=== PATIENT | male | born 1955 | race Caucasian/White ===

== ENCOUNTER 2019-08-07 16:05 | Emergency (ER) | payer MEDICARE, SELFPAY ==
[2019-08-07 16:13] VITALS: BP 151/94; PULSE 82; RESP 18; O2SAT 97; BMI 34.0
[2019-08-07 16:33] VITALS: BP 128/73; PULSE 77; RESP 18; TEMP 36.6; O2SAT 98; BMI 33.6
--- NOTE | 2019-08-07 16:33 | HMH.EDUTC ---
[facility] Disposition Clinical Impression: Bee sting reaction Qualifiers: Encounter type: initial encounter Injury intent: undetermined intent Qualified Code(s): T63.444A - Toxic effect of venom of bees, undetermined, initial encounter Disposition: Home, Self-Care Condition on Discharge: Good Instructions: Insect Bites and Stings, DI for Insect Bites and Stings, How to Care for an Insect Bite or Sting, Insect Bites and Stings (Alternative Therapy) Additional Instructions: Take medication as prescribed Watch for reactions in the future when you get stung or bitten by bee Return if needed Follow up with family doctor if no improvement or any worsening of symptoms Straight to ER if any life threatening symptoms Allergy testing recommended to see which bee stings you may react too Elevate hand and ice to area may help with pain and itching Prescriptions: cephALEXin [Keflex 500mg Cap] 500 mg PO Q6H 7 Days #28 cap Transmission Status: Pending to [facility] methylPREDNISolone [Medrol 4mg tab] 4 mg PO DIRECTED #21 tab Transmission Status: Pending to [id number] Referrals: Provider,Referral, [Primary Care Provider] - As needed Time of Disposition: 17:00 Medical Decision Making - Giancarlo Inquiry Pt receiving controlled substance: No Giancarlo was queried for this patient: No Vital Signs: 08/07/19 16:13 Pulse Rate [Radial] 82 Respiratory Rate 18 Blood Pressure [Right Arm] 151/94 H Blood Pressure Mean [Right Arm] 113 Blood Pressure Source [Right Arm] Automatic Cuff Blood Pressure Position [Right Arm] Sitting 02 Sat by Pulse Oximetry 97 Oxygen Delivery Method Room Air [facility] HPI - General Stated complaint: Stung by wasp right hand red and swollen Time Seen by Provider: 08/07/19 16:33 Mode of Arrival: Ambulatory Limitations: No Limitations Description of Symptoms (Recalled from Triage Doc. by RN): stung by a wasp 48 hours ago - History of Present Illness Provider Complaint: Patient states a couple days ago he was stung by a wasp and thinks he is having a reaction States that the swelling in his right hand has continued to get worse State that he noticed it was more itchy and swollen earlier today and thought he may need to come in States that he has an epipen at home where he had a reaction similar to this a few years ago to a hornet - Related Data Home Medications Medication Instructions Recorded Confirmed Amlodipine Besylate [Amlodipine 10 mg PO DAILY 08/07/19 08/07/19 10mg Tab] Olmesartan Medoxomil [Benicar] 40 mg PO DAILY 08/07/19 08/07/19 Previous Rx's Medication Instructions Recorded cephALEXin [Keflex 500mg Cap] 500 mg PO Q6H 7 Days #28 cap 08/07/19 methylPREDNISolone [Medrol 4mg 4 mg PO DIRECTED #21 tab 08/07/19 tab] Allergies Allergy/AdvReac Type Severity Reaction Status Date / Time No Known Allergies Allergy Verified 08/07/19 16:14 [facility] History - Hepatitis A Screen Attestation statement:: This patient has been screened for Hepatitis A risk factors. ROS Obtained: Yes All systems reviewed & no additional complaints, Yes Systems reviewed as appropriate & no additional complaints - Allergic/Immunologic Comments: bee sting in right hand with swelling into right forearm Physical Exam - General General appearance: alert, in no apparent distress - ENT ENT exam: Present: normal exam, normal oropharynx, mucous membranes moist, TM's normal bilaterally, normal external ear exam - Respiratory Respiratory exam: Present: normal lung sounds bilaterally. Absent: respiratory distress - Cardiovascular Cardiovascular exam: Present: regular rate - Abdominal Exam Abdominal exam: Present: soft, normal bowel sounds. Absent: distention, tenderness, guarding - Expanded Upper Extremity Exam Right Forearm/Wrist exam: Present: swelling Hand exam: Present: tenderness, swelling, other (swelling, redness and itching in right hand extendin
[2019-08-07 16:55] VITALS: BP 128/73; PULSE 77; RESP 18; TEMP 36.6; O2SAT 98
== END 2019-08-07 17:05 | disposition home or self-care (01) ==
PROVIDERS: Emergency Provider Nurse Practitioner
DX: T63.441A Toxic effect of venom of bees, accidental (unintentional), initial encounter (principal)
CPT/HCPCS: G0463; 96372; 99201

== ENCOUNTER 2019-12-19 09:14 | Emergency (ER) | payer MEDICARE, SELFPAY ==
[2019-12-19 09:15] VITALS: BP 141/87; PULSE 76; RESP 19; TEMP 36.6; O2SAT 99; BMI 33.3
--- NOTE | 2019-12-19 09:26 | XR_ITS ---
PROCEDURE: XR RIBS LT MIN 3V W [id number] CLINICAL INDICATION: fall Posttraumatic pain COMPARISON: No exams were available for comparison FINDINGS: Frontal view of the chest shows no acute finding. Minimally offset fracture is noted involving the left 6th rib with a nondisplaced fracture of the left 7th rib both lateral. There is some mild pleural thickening at the rib fracture site. IMPRESSION: Left 6th and 7th rib fractures with mild overlying pleural thickening Dictated by: Slade Robins MD 12/19/2019 09:56 Slade Robins MD in [place] 12/19/2019 09:56
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
[2019-12-19 10:24] VITALS: BP 141/87; PULSE 76; RESP 19; TEMP 36.6; O2SAT 99
== END 2019-12-19 10:25 | disposition home or self-care (01) ==
PROVIDERS: Emergency Provider Nurse Practitioner
DX: S22.42XA Multiple fractures of ribs, left side, initial encounter for closed fracture (principal); V19.3XXA Pedal cyclist (driver) (passenger) injured in unspecified nontraffic accident, initial encounter; Y92.488 Other paved roadways as the place of occurrence of the external cause
CPT/HCPCS: 71101; 99201